=== PATIENT | male | born 1985 | race Caucasian/White ===

== ENCOUNTER 2019-06-04 21:31 | Emergency (ER) | payer OTHER ==
[~2019-06-04] VITALS: Ht 180.3 cm; Wt 88.5 kg
[2019-06-04 22:16] LABS: HEMATOCRIT 41.9 % (42.0-52.0); HEMOGLOBIN 14.8 gm/dL (14.0-18.0); MCH 30.4 pg (26.0-34.0); MCHC 35.4 g/dL (28.0-37.0); MCV 85.7 fL (80.0-100.0); RBC 4.88 mil/uL (4.50-6.00); RDW-CV 13.3 % (10.5-14.5); WBC 11.7 thou/uL (4.0-11.0)
[2019-06-04 22:32] LABS: CALCIUM 8.9 mg/dL (8.5-10.1); CREATININE 1.2 mg/dL (0.6-1.3); POTASSIUM 3.5 mmol/L (3.5-5.1)
[2019-06-04 22:37] LABS: ALBUMIN 4.3 g/dL (3.4-5.0); TOTAL BILIRUBIN 0.4 mg/dL (<0.1-1.0); TOTAL PROTEIN 7.2 g/dL (6.4-8.2)
[2019-06-04 22:43] LABS: URINE BILIRUBIN NEGATIVE (Negative); URINE BLOOD NEGATIVE (Negative); URINE CLARITY CLEAR; URINE COLOR YELLOW; URINE GLUCOSE-RANDOM NEGATIVE (Negative); URINE KETONES NEGATIVE (Negative); URINE LEUKOCYTES NEGATIVE (Negative); URINE NITRITE NEGATIVE (Negative); URINE PROTEIN NEGATIVE (Negative); URINE SPECIFIC GRAVITY >= 1.030 (1.005-1.030); URINE UROBILINOGEN 0.2 E.U./dl (0.2-1.0)
[2019-06-04 22:47] LABS: SALICYLATE < 2.8 mg/dL (2.8-20.0)
[2019-06-04 22:48] LABS: ACETAMINOPHEN < 2 ug/mL (10-30); ALCOHOL < 10 mg/dL (<10)
[2019-06-04 23:10] LABS: AMP/METHAMP Negative (Negative); BARBITURATES Negative (Negative); BENZODIAZEPINES Negative (Negative); COCAINE Negative (Negative); METHADONE Negative (Negative); OPIATES Negative (Negative); PCP Negative (Negative); THC POSITIVE (Negative)
[2019-06-05 02:10] VITALS: BP 134/87
== END 2019-06-05 02:10 | disposition home or self-care (01) ==
LOC: M.ERS 21:31
PROVIDERS: Personal Emergency Response Attendant
DX: F32.9 Major depressive disorder, single episode, unspecified (principal)

== ENCOUNTER 2019-07-05 07:52 | Emergency (ER) | payer OTHER ==
[~2019-07-05] VITALS: Ht 180.3 cm; Wt 88.5 kg
[2019-07-05] MEDS ORDERED: BACTRIM DS TAB1 EAC1 PO ×2 (08:10→08:19)
[2019-07-05] MEDS ORDERED: NORCO 5-325 TA1 EAC1 PO (08:19)
[2019-07-05 08:35] VITALS: BP 128/73
== END 2019-07-05 08:35 | disposition home or self-care (01) ==
LOC: M.ERS 07:52
DX: L02.411 Cutaneous abscess of right axilla (principal)

== ENCOUNTER 2019-07-06 09:47 | Inpatient (IN) | payer OTHER ==
[~2019-07-06] VITALS: Ht 180.3 cm; Wt 88.5 kg
--- NOTE | ~2019-07-06 | OP ---
[facility] [address] [place] [address] OPERATIVE REPORT Name: MAEGAN JACKSON Room: [place] [address] ADM IN M.R.#: [id number] Admission: 07/06/19 Attend Phys: Rebekah Fam Discharge: Date of : 85 Report #: [id number] THIS REPORT FOR: //name// cc: JUAREZ Thomas family physician/PCP JUAREZ Thomas family physician/PCP ~ THIS REPORT FOR: //name// CC: JUAREZ physician/PCP Rebekah Bennett DATE OF SERVICE: 07/06/2019 PREOPERATIVE DIAGNOSIS: Right axillary abscess. POSTOPERATIVE DIAGNOSIS: Right axillary abscess. OPERATION: Incision and drainage of right axillary abscess. SURGEON: Duane Evans MD ANESTHESIA: General. ESTIMATED BLOOD LOSS: Minimal. SPECIMEN: Abscess fluid for culture and sensitivity. DESCRIPTION OF PROCEDURE: After informed consent was obtained, the patient was brought to the operating room and placed supine. SCDs were placed and working, preoperative antibiotics were administered, general anesthesia was induced. The right axilla was prepped and draped in the usual sterile fashion. Approximately 3 cm incision was made over the area of fluctuance. Cautery dissection was made down through the subcutaneous tissue. The area was then explored. Loculations were broken up with the clamp. Cultures were taken of the fluid. The area was then copiously irrigated with normal saline. It was then packed with sterile gauze. Sterile dressings were applied. COMPLICATIONS: None. DISPOSITION: The patient was taken to recovery in satisfactory condition. By: [id number] Evans MD /nt
[~2019-07-06 09:47] MED LIST: BACTRIM DS TAB1 EAC1 PO; NORCO 5-325 TA1 EAC1 PO
[2019-07-06 09:55] VITALS: BP 143/80
[2019-07-06 10:47] LABS: HEMATOCRIT 40.6 % (42.0-52.0); HEMOGLOBIN 14.3 gm/dL (14.0-18.0); MCH 30.2 pg (26.0-34.0); MCHC 35.2 g/dL (28.0-37.0); MPV 6.9 fl. (7.2-11.1); NUCLEATED RBCS 0 /100WBC; PLATELET COUNT* 225 thou/uL (150-400); RBC 4.72 mil/uL (4.50-6.00); RDW-CV 13.1 % (10.5-14.5); WBC 21.4 thou/uL (4.0-11.0)
[2019-07-06 10:59] LABS: CREATININE 1.2 mg/dL (0.6-1.3); POTASSIUM 3.7 mmol/L (3.5-5.1)
[2019-07-06 11:04] LABS: ALBUMIN 3.4 g/dL (3.4-5.0); TOTAL BILIRUBIN 0.5 mg/dL (<0.1-1.0); TOTAL PROTEIN 7.4 g/dL (6.4-8.2)
[2019-07-06 11:23] LABS: ABSOLUTE EOSINOPHILS 0.2 thou/uL (0.0-0.7); ABSOLUTE LYMPHOCYTES 1.5 thou/uL (0.8-5.3); ABSOLUTE MONOCYTES 1.3 thou/uL (0.0-1.2); ABSOLUTE NEUTROPHILS 18.4 thou/uL (1.6-8.1); PLATELET ESTIMATE ADEQUATE
[2019-07-06 11:31] VITALS: BP 143/80
[2019-07-06 14:10] VITALS: BP 124/75
--- NOTE | 2019-07-06 18:00 | NUR ---
PT ARRIVED TO TELE FLOOR AROUND 1410. RECIEVED BEDSIDE REPORT FROM STEVEN FROM PACU. PT A&O X4, A LITTLE GROGGY UPON ARRIVAL BUT BECAME MORE AWAKE AFTER AN HOUR. PT ORIENTED TO ROOM, BED AND CALL LIGHT. ADMISSION ASSESSMENT, HISTORY AND EDUCATION COMPLETED CHARTED. IV INTACT AND INFUSING IVF. MEDS PER EMAR. PO PAIN MEDICAITON GIVEN FOR REPORT OF RIGHT AXILLA PAIN FROM I&D. PT TOLERATING DIET. ABLE TO BE UP AD DONN. LOW FALL RISK PRECAUTIONS IN PLACE. CALL LIGHT WITHIN REACH. HOURLY ROUNDING PERFORMED.
[2019-07-06 18:01] LABS: AMP/METHAMP Negative (Negative); BARBITURATES Negative (Negative); BENZODIAZEPINES POSITIVE (Negative); COCAINE Negative (Negative); METHADONE Negative (Negative); OPIATES POSITIVE (Negative); PCP Negative (Negative); THC POSITIVE (Negative)
[2019-07-06 20:00] VITALS: BP 124/70
[2019-07-07 00:58] VITALS: BP 121/68
[2019-07-07 03:57] LABS: HEMATOCRIT 37.9 % (42.0-52.0); HEMOGLOBIN 13.3 gm/dL (14.0-18.0); MCH 30.5 pg (26.0-34.0); MPV 7.8 fl. (7.2-11.1); RBC 4.36 mil/uL (4.50-6.00); RDW-CV 13.1 % (10.5-14.5); WBC 22.7 thou/uL (4.0-11.0)
[2019-07-07 04:12] LABS: CALCIUM 8.6 mg/dL (8.5-10.1); CREATININE 1.3 mg/dL (0.6-1.3); MAGNESIUM 2.1 mg/dL (1.8-2.4); PHOSPHORUS* 3.9 mg/dL (2.5-4.9); POTASSIUM 4.3 mmol/L (3.5-5.1)
--- NOTE | 2019-07-07 04:32 | NUR ---
PT A&O, VSS ON RA. IV ABX GIVEN ORDERED. PAIN MANAGED WITH NORCO AND PERCOCET. DRESSING CLEAN AND INTACT WITH MODERATE DRAINAGE. PT UP INDEPENDENTLY TO USE THE BATHROOM. NO OTHER CONCERNS AT THIS TIME. WILL CONTINUE TO MONITOR.
[2019-07-07 07:30] VITALS: BP 117/78
--- NOTE | 2019-07-07 10:50 | NUR ---
Nutrition: Pt admitted with arm abscess. Consult for poor intake. Pt is tolerating regular diet. Wt: 195#. alb 3, WBC 22.7. Hx noted. RD ordered Ensure Clear for some added kcals and nutrition. Mild risk.
--- NOTE | 2019-07-07 10:51 | NUR ---
WOUND NURSE: PATIENT SEEN AT REQUEST OF STAFF NURSE PERTAINING TO RIGHT AXILLARY POSTOP OPEN WOUND. MEASURES 1.0 X 5.5 X 4.0 WITH AT LEAST 4CM UNDERMINING FROM 12 TO 12 O'CLOCK. PATIENT'S WOUND WAS UNPACKED BY STAFF NURSE, THEN PATIENT SHOWERED AND IRRIGATED THE WOUND IN THE SHOWER WITH HAND HELD SHOWER HEAD. PRESENTS WITH MINIMAL REDNESS, WARMTH, OR INDURATION AT THIS TIME. WOUND BED WITH EXPOSED MUSCLE TISSUE, AND RED, NONGRANULATING TISSUE. REPACKED WOUND USING AQUACEL AG (CUT INTO CINNAMON ROLL SHAPE) AND TWISTED TOGETHER WITH 1/2 INCH PLAIN PACKING RIBBON. APPLIED ADDITIONAL PIECE OF AQUACELA AG OVER THE WOUND OPENINGS, COVERED WITH ABD, THEN SECURED WITH MICROFOAM TAPE. THIS WAS PAINFUL FOR THE PATIENT DESPITE BEING PREMEDICATED BY HIS NURSE FOR PAIN. PATIENT WAS INSTRUCTED ON MEASURES TO PROMOTE HEALING, HELP PREVENT INFECTION, AND NUTRITIONAL REQUIREMENTS FOR HEALING. PATIENT STATES HE UNDERSTANDS.
--- NOTE | 2019-07-07 11:12 | NUR ---
WOUND NURSE: SPOKE WITH DR. ALVES AND PATIENT APPROVED FOR DRESSING CHANGE PERFORMED.
[2019-07-07 16:27] VITALS: BP 118/76
--- NOTE | 2019-07-07 16:51 | NUR ---
SW called pt to complete initial assessment, introduce self, and SW/CM role. Pt says that his mother is very supportive. Pt says that he plans to go to [facility] for [facility]1 a day and that he hopes to be able to get back to work after recovering from "surgery" previous to hospitalization. Pt did not anticipate any needs at this time and said he wanted to eat now that he has his food. SW to remain available to assist if needs arise; SW encouraged pt to call for any resources or referrals.
--- NOTE | 2019-07-07 19:17 | NUR ---
RECEIVED REPORT FROM MIKHAIL AUSTIN. ASSUMED CARE OF PT AROUND 0730. PT A&O X4. M/S STATUS. AM ASSESSMENT AND VITALS COMPLETED CHARTED. MEDS PER EMAR. PT TOLERATING DIET. RIGHT AXILLA WOUND TO RIGHT AXILLA CHANGED BY KARENA (WOUND NURSE) AND THIS RN. PT RECEIVED PO AND IV PAIN MEDICATION THROUGHOUT THE SHIFT FOR COMPLAINT OF PAIN IN RIGHT AXILLA WOUND - PARTIAL RELIEF OBTAINED. PT ABLE TO BE UP AD DONN - WALKED THE HALLS A FEW TIMES. PT CURRENTLY RESTING IN BED TALING TO HIS MOM ON THE PHONE. CALL LIGHT IS WITHIN REACH. HOURLY ROUNDING PERFORMED. LOW FALL RISK PRECAUTIONS IN PLACE.
[2019-07-07 20:00] VITALS: BP 123/72
[2019-07-07 23:56] VITALS: BP 134/84
[2019-07-08 08:00] VITALS: BP 134/75
[2019-07-08 16:25] VITALS: BP 123/78
--- NOTE | 2019-07-08 17:29 | NUR ---
PT IS COMPLAINING OF PAIN 7/10 UNRELIEVED BY ORAL ANALGESICS. PT IS PLEASANT AND SOCIAL HOWEVER. DRESSING CDI. VSS.
--- NOTE | 2019-07-08 18:13 | NUR ---
side note as i may not be caring for pt tomorrow. pt to have dressing changed tomorrow and reports pain intensity, physician requests to administer iv pain analgesic prior to change.
[2019-07-08 19:30] VITALS: BP 130/82
[2019-07-09] VITALS: BP 114/71
--- NOTE | 2019-07-09 02:10 | NUR ---
ASSUMED CARE FROM DAY SHIFT PT REQUESTING PAIN MEDICATION FREQ , DRESSING ON RIGHT AXILLA INTACT WITHOUT BLEEDING. IV FLUIDS INFUSING WELL. PT UP IN ROOM. PT RESTING WELL THROUGHOUT HOURLY ROUNDS. WILL CONITNUE WITH CURRENT PLAN OF CARE.
[2019-07-09 05:06] LABS: HEMATOCRIT 41.4 % (42.0-52.0); HEMOGLOBIN 14.1 gm/dL (14.0-18.0); MCH 29.8 pg (26.0-34.0); MCV 87.7 fL (80.0-100.0); MPV 7.7 fl. (7.2-11.1); RBC 4.72 mil/uL (4.50-6.00); RDW-CV 13.6 % (10.5-14.5); WBC 11.2 thou/uL (4.0-11.0)
[2019-07-09 05:18] LABS: ALBUMIN 3.2 g/dL (3.4-5.0); CALCIUM 8.9 mg/dL (8.5-10.1); CREATININE 1.2 mg/dL (0.6-1.3); MAGNESIUM 1.9 mg/dL (1.8-2.4); PHOSPHORUS* 4.9 mg/dL (2.5-4.9); POTASSIUM 4.2 mmol/L (3.5-5.1)
[2019-07-09 07:59] VITALS: BP 139/97
--- NOTE | 2019-07-09 11:17 | NUR ---
assumed pt care report received from nurse pt is aox4, on ra, medsurg status. vss. pt complains of pain in right axillary. picture of right axillary wound taken. dressing changeda and packing done as ordered. pt was given hydrocodone and fentanyl prior to dressing change. pt got in shower and received new clothes for his mother who brought them in the er. this nurse communicated with mother who stated that the patient is not homeless and that she will be able to take care of wound once pt get discharged. call light within reach. will continue to monitor pt
--- NOTE | 2019-07-09 14:57 | NUR ---
iv abx hanged. new iv fluid bag hanged. fentanyl given again for pain. dressing looks intact. will continue to monitor
[2019-07-09 16:37] VITALS: BP 123/76
[2019-07-09 20:56] VITALS: BP 129/70
[2019-07-10 03:52] VITALS: BP 149/94
[2019-07-10 04:27] LABS: HEMATOCRIT 40.4 % (42.0-52.0); MCH 30.1 pg (26.0-34.0); MCHC 34.6 g/dL (28.0-37.0); MPV 7.4 fl. (7.2-11.1); RBC 4.64 mil/uL (4.50-6.00); RDW-CV 13.3 % (10.5-14.5)
[2019-07-10 05:02] LABS: ALBUMIN 3.1 g/dL (3.4-5.0); CALCIUM 8.7 mg/dL (8.5-10.1); CREATININE 1.2 mg/dL (0.6-1.3); PHOSPHORUS* 4.1 mg/dL (2.5-4.9)
--- NOTE | 2019-07-10 05:42 | NUR ---
PATIENT SLEPT WELL THROUGH NIGHT. REPORTS PAIN AT 8/10 NEEDED NORCO/PERCOCET 1 TIME EACH. UP AD DONN, A&O X4, DRESSING PACKED AND COVERED AND IS C/D/I. RECEIVED ALL SCHEDULED ABX. PLAN FOR ABX/PAIN MANAGEMENT AND MOVE TOWARDS D/C. WILL CONTINUE TO MONITOR.
[2019-07-10 08:00] VITALS: BP 139/84
--- NOTE | 2019-07-10 10:59 | NUR ---
ASSUMED PT CARE REPORT RECEIVED FROM NURSE PT IS AOX4. ON RA. PT IS IRRITABLE AND WNATS TO GO HOME. PT REASSURED THAT THE DR WILL BE IN TODAY AND PLAN HIS DISCHARGE IF RECOMMENDED. VSS. THIS NURSE SPOKE WITH MAP MAKER WHO IS ON BOARD WELL. RIGHT AXILLARY ASSESSED.DRESSING IS INTACT. PT DENIES ANY PAIN AT TIME OF ASSESSMEMT. CALL LIGHT WITHIN REACH . WILL CONTINUE TO MONITOR
[2019-07-10 12:32] VITALS: BP 139/84
[2019-07-10 12:38] VITALS: BP 139/84
--- NOTE | 2019-07-10 12:56 | NUR ---
DRESSING CHANGED AND WOUND PACKING PERFORMED AT BEDSIDE. DISCHARGE INSTRUCTION GIVEN TO PATIENT. WOUND CARE FOLLOW UP AND FOLLOW UP WITH DR WHO OPERATED WRITTEN. QUESTIONS ANSWWERED. IV REMOVED. AWAITING FOR PATIENT'S MOTHER TO PLUMBER APPRENTICE.
--- NOTE | 2019-07-10 13:12 | NUR ---
PT LEFT UNIT AT 1308 AMBULATORY ACCOMPANIED BY NURSE TECH. GUZMAN BROUGHT ALONG. HIS MOTHER PICKED UP
--- NOTE | 2019-07-10 14:24 | NUR ---
Pt to dc today with mother support. SW spoke with pt nurse who provided wound care education and information for follow up wound care. Pt nurse reviewed pt medication, abx, and would follow up if needed for rx assistance.
== END 2019-07-10 13:11 | disposition home or self-care (01) | DRG 854 ==
LOC: M.ERS 09:47 → M.2W 10:50 → M.TBA-ER 10:50 → M.2W 14:47
PROVIDERS: Physician Assistant; ADMIT Family Medicine
PROC: 0J960ZZ Drainage of Chest Subcutaneous Tissue and Fascia, Open Approach (ICD-10-PCS; principal; 2019-07-06)
DX: A41.9 Sepsis, unspecified organism (principal); L03.111 Cellulitis of right axilla; L02.411 Cutaneous abscess of right axilla; E44.0 Moderate protein-calorie malnutrition; F32.9 Major depressive disorder, single episode, unspecified; Z68.27 Body mass index [BMI] 27.0-27.9, adult